=== PATIENT | male | born 1945 | race Caucasian/White ===

== ENCOUNTER 2021-04-29 00:58 | Inpatient (IN) ==
[2021-04-29] MEDS ORDERED: OCTREOTIDE 100 MCG/ML SYRINGE IV STA (01:13)
[2021-04-29] MEDS ORDERED: PANTOPRAZOLE 40 MG VIAL IV STA (01:13)
[2021-04-29] MEDS ORDERED: cefTRIAXone 2,000 MG in SODIUM CHLORIDE 0.9% 100 ML IV STA (01:15)
[2021-04-29] MEDS ORDERED: LACTATED RINGERS 1,000 ML IV ONE (01:17)
[2021-04-29] MEDS ORDERED: ONDANSETRON 4 MG/2 ML VIAL IV ONE (01:17)
[2021-04-29] MEDS ORDERED: SODIUM CHLORIDE 0.9% 1,000 ML IV PRN (01:21)
[2021-04-29] MEDS ORDERED: PROTHROMBIN COMPLEX IV ONE ×2 (01:21→02:30)
[2021-04-29 01:31] LABS: Basophils % 0.3 % (0.0-0.8); Eosinophils # 0.1 10*3/uL (0.0-0.87); Eosinophils % 0.5 % (0.00-10.9); Hematocrit 19.2 VOL% (42.0-52.0); Immature Granulocytes % 0.5 %; Immature Granulocytes Absolute 0.05 #; Lymphocytes # 1.3 10*3/uL (1.4-4.0); Lymphocytes % 13.6 % (21.2-54.2); Mean Corpuscular HGB Conc 30.2 GM/DL (32-36); Mean Corpuscular Volume 107.9 FL (87-102); Mean Platelet Volume 10.5 FL (9.6-12.0); Neutrophils % 78.1 % (38.7-73.9); Platelet Count 209 T/CUMM (130-400); White Blood Count 9.3 T/CUMM (4-12)
[2021-04-29 01:33] LABS: Red Blood Count 1.78 MC/CUMM (3.8-5.5)
[2021-04-29 01:34] LABS: Hemoglobin 5.8 GM/DL (14.0-18.0)
[2021-04-29 01:41] LABS: INR 4.6; Partial Thromboplastin Time 39.9 SECS (23.8-32.1)
[2021-04-29 01:47] LABS: PT Patient Result 46.1 SECS (10.5-12.0)
[2021-04-29 01:52] LABS: Alanine Aminotransferase 17 U/L (16-61); Albumin 1.8 G/DL (3.4-5.0); Alkaline Phosphatase 48 U/L (45-117); Aspartate Amino Transferase 11 U/L (0-37); Bilirubin,Total < 0.39 MG/DL (0.20-1.00); Blood Urea Nitrogen 94 MG/DL (7-18); Calcium 7.7 MG/DL (8.5-10.1); Carbon Dioxide 14 MMOL/L (21-32); Estimated Glom Filtration Rate 13 ML/MIN; Glucose 282 MG/DL (74-106); Osmolality,Calculated 319.3 MOS/KG (273-304); Potassium 4.6 MMOL/L (3.5-5.1); Sodium 141 MMOL/L (136-145); Total Protein 4.8 G/DL (6.4-8.2)
[2021-04-29] MEDS ORDERED: ALBUTEROL 2.5 MG/3 ML NEB RESP TX PRN (02:34)
[2021-04-29] MEDS ORDERED: ONDANSETRON 4 MG/2 ML VIAL IV PRN (02:35)
[2021-04-29] MEDS ORDERED: OCTREOTIDE 500 MCG in SODIUM CHLORIDE 0.9% 100 ML IV SCH (03:00)
[2021-04-29 05:06] LABS: Basophils % 0.3 % (0.0-0.8); Eosinophils % 0.1 % (0.00-10.9); Hematocrit 26.7 VOL% (42.0-52.0); Immature Granulocytes % 0.7 %; Immature Granulocytes Absolute 0.07 #; Lymphocytes # 0.5 10*3/uL (1.4-4.0); Mean Corpuscular HGB Conc 31.1 GM/DL (32-36); Mean Corpuscular Volume 100.8 FL (87-102); Mean Platelet Volume 10.8 FL (9.6-12.0); Monocytes % 8.2 % (1.7-12.7); Neutrophils % 85.7 % (38.7-73.9); Platelet Count 178 T/CUMM (130-400); Red Cell Distribution Width 17.9 % (9.3-17.3); White Blood Count 10.1 T/CUMM (4-12)
[2021-04-29 05:08] LABS: Hemoglobin 8.3 GM/DL (14.0-18.0); Red Blood Count 2.65 MC/CUMM (3.8-5.5)
[2021-04-29 05:27] LABS: Albumin 1.9 G/DL (3.4-5.0); Bilirubin,Total 0.5 MG/DL (0.20-1.00); Calcium 7.2 MG/DL (8.5-10.1); Osmolality,Calculated 317.4 MOS/KG (273-304); Potassium 5.3 MMOL/L (3.5-5.1); Total Protein 5.4 G/DL (6.4-8.2)
[2021-04-29] MEDS ORDERED: SODIUM POLYSTYRENE SULFATE 15 GM/60 ML BOTTLE PO ONE (07:50)
[2021-04-29] MEDS: OCTREOTIDE 500 MCG in SODIUM CHLORIDE 0.9% 100 ML IV SCH ×3 (07:50→17:30)
[2021-04-29 08:38] LABS: Bacteria,Urine Occasional /HPF (Few); Bilirubin,Urine Negative (Negative); Blood, Urine Negative (Negative); Glucose,Urine (UA) 50 mg/dL (Negative); Ketones,Urine 5 mg/dL (Negative); Mucus,Urine Occasional /LPF (Occasional); Nitrite,Urine Negative (Negative); Protein,Urine 100 MG/DL; RBC,Urine 1 /HPF (0-4); Urine Appearance CLEAR (Clear); Urine Color Yellow (Yellow); Urine Specific Gravity 1.016 (1.001-1.035); Urine Urobilinogen < 2.0 EU/DL (<2.0)
[2021-04-29] MEDS ORDERED: CALCIUM CHLORIDE 2,000 MG in SODIUM CHLORIDE 0.9% 100 ML IV ONE (09:14)
[2021-04-29 11:19] LABS: INR 1.9; PT Patient Result 20.9 SECS (10.5-12.0)
[2021-04-29] MEDS ORDERED: tiZANidine 4 MG TABLET PO PRN (11:37)
[2021-04-29] MEDS ORDERED: LIDOCAINE 2% 5 ML VIAL ONE (12:53)
[2021-04-29] MEDS ORDERED: propofoL 200 MG/20 ML VIAL IV ONE (12:53)
[2021-04-29] MEDS ORDERED: ETOMIDATE 20 MG/10 ML VIAL IV ONE (12:53)
[2021-04-29] MEDS: SODIUM CHLORIDE 0.9% 1,000 ML IV SCH (14:00)
[2021-04-29] MEDS: CALCIUM GLUCONATE 2,000 MG in SODIUM CHLORIDE 0.9% 100 ML IV ONE ×2 (14:08→15:10)
[2021-04-29] MEDS: PANTOPRAZOLE 40 MG VIAL IV SCH (15:57)
[2021-04-29 17:33] LABS: Hematocrit 26.8 VOL% (42.0-52.0); Hemoglobin 8.6 GM/DL (14.0-18.0)
[2021-04-29] MEDS: TAMSULOSIN 0.4 MG CAPSULE PO SCH (21:40)
[2021-04-29] MEDS: SIMVASTATIN 10 MG TABLET PO SCH (21:40)
[2021-04-29 22:10] LABS: Hematocrit 26.2 VOL% (42.0-52.0); Hemoglobin 8.4 GM/DL (14.0-18.0)
[2021-04-30] MEDS: PANTOPRAZOLE 40 MG VIAL IV SCH ×2 (03:29→15:50)
[2021-04-30] MEDS: OCTREOTIDE 500 MCG in SODIUM CHLORIDE 0.9% 100 ML IV SCH ×3 (03:29→23:23)
[2021-04-30 05:07] LABS: Hematocrit 24.1 VOL% (42.0-52.0); Hemoglobin 7.6 GM/DL (14.0-18.0)
[2021-04-30 10:03] LABS: Hematocrit 23.3 VOL% (42.0-52.0); Hemoglobin 7.5 GM/DL (14.0-18.0)
[2021-04-30 10:06] LABS: Basophils % 0.2 % (0.0-0.8); Eosinophils # 0.4 10*3/uL (0.0-0.87); Eosinophils % 4.1 % (0.00-10.9); Hematocrit 23.5 VOL% (42.0-52.0); Hemoglobin 7.5 GM/DL (14.0-18.0); Immature Granulocytes % 0.6 %; Immature Granulocytes Absolute 0.05 #; Lymphocytes # 0.9 10*3/uL (1.4-4.0); Lymphocytes % 9.9 % (21.2-54.2); Mean Corpuscular HGB Conc 31.9 GM/DL (32-36); Mean Corpuscular Volume 96.7 FL (87-102); Mean Platelet Volume 10.9 FL (9.6-12.0); Monocytes % 8.2 % (1.7-12.7); Platelet Count 126 T/CUMM (130-400); Red Blood Count 2.43 MC/CUMM (3.8-5.5); Red Cell Distribution Width 18.3 % (9.3-17.3); White Blood Count 8.7 T/CUMM (4-12)
[2021-04-30] MEDS: DOCUSATE SODIUM 100 MG CAPSULE PO SCH (10:14)
[2021-04-30] MEDS: CYANOCOBALAMIN 500 MCG TABLET PO SCH (10:14)
[2021-04-30 10:19] LABS: Calcium 7.3 MG/DL (8.5-10.1); Osmolality,Calculated 322.4 MOS/KG (273-304); Potassium 4.5 MMOL/L (3.5-5.1)
[2021-04-30 13:02] LABS: INR 1.9; PT Patient Result 20.2 SECS (10.5-12.0)
[2021-04-30] MEDS ORDERED: fentaNYL 25 MCG/HR PATCH TRANSDERM SCH (13:28)
[2021-04-30 16:18] LABS: Hematocrit 21.5 VOL% (42.0-52.0); Hemoglobin 6.9 GM/DL (14.0-18.0)
[2021-04-30] MEDS: TAMSULOSIN 0.4 MG CAPSULE PO SCH (20:34)
[2021-04-30] MEDS: SIMVASTATIN 10 MG TABLET PO SCH (20:34)
[2021-04-30] MEDS: SODIUM CHLORIDE 0.9% 1,000 ML IV SCH (20:47)
[2021-05-01] MEDS: PANTOPRAZOLE 40 MG VIAL IV SCH ×2 (04:08→19:34)
[2021-05-01] MEDS: OCTREOTIDE 500 MCG in SODIUM CHLORIDE 0.9% 100 ML IV SCH ×2 (05:15→19:34)
[2021-05-01 05:29] LABS: INR 1.9; PT Patient Result 20.9 SECS (10.5-12.0)
[2021-05-01 05:33] LABS: Calcium 7.5 MG/DL (8.5-10.1); Osmolality,Calculated 316.7 MOS/KG (273-304); Potassium 4.4 MMOL/L (3.5-5.1)
[2021-05-01] MEDS: DOCUSATE SODIUM 100 MG CAPSULE PO SCH (08:42)
[2021-05-01] MEDS: CYANOCOBALAMIN 500 MCG TABLET PO SCH (08:43)
[2021-05-01] MEDS ORDERED: SODIUM CHLORIDE 0.9% 1,000 ML IV PRN (09:39)
[2021-05-01 09:45] LABS: Basophils % 0.3 % (0.0-0.8); Eosinophils # 0.3 10*3/uL (0.0-0.87); Eosinophils % 4.9 % (0.00-10.9); Immature Granulocytes % 0.8 %; Immature Granulocytes Absolute 0.05 #; Lymphocytes # 0.7 10*3/uL (1.4-4.0); Lymphocytes % 11.5 % (21.2-54.2); Mean Corpuscular HGB Conc 30.9 GM/DL (32-36); Mean Corpuscular Volume 99.3 FL (87-102); Mean Platelet Volume 10.7 FL (9.6-12.0); Monocytes % 9.3 % (1.7-12.7); Neutrophils % 73.2 % (38.7-73.9); Platelet Count 104 T/CUMM (130-400); Red Blood Count 1.53 MC/CUMM (3.8-5.5); Red Cell Distribution Width 17.6 % (9.3-17.3); White Blood Count 5.9 T/CUMM (4-12)
[2021-05-01 10:01] LABS: Hematocrit 15.2 VOL% (42.0-52.0); Hemoglobin 4.7 GM/DL (14.0-18.0)
[2021-05-01] MEDS: fentaNYL 50 MCG/HR PATCH TRANSDERM SCH (10:25)
[2021-05-01] MEDS: TAMSULOSIN 0.4 MG CAPSULE PO SCH (20:39)
[2021-05-01] MEDS: SIMVASTATIN 10 MG TABLET PO SCH (20:39)
[2021-05-02] MEDS: PANTOPRAZOLE 40 MG VIAL IV SCH ×2 (04:36→17:12)
[2021-05-02] MEDS: OCTREOTIDE 500 MCG in SODIUM CHLORIDE 0.9% 100 ML IV SCH ×2 (04:42→17:14)
[2021-05-02 07:57] LABS: Basophils % 0.4 % (0.0-0.8); Eosinophils # 0.3 10*3/uL (0.0-0.87); Eosinophils % 3.5 % (0.00-10.9); Hematocrit 20.8 VOL% (42.0-52.0); Hemoglobin 6.6 GM/DL (14.0-18.0); Immature Granulocytes Absolute 0.07 #; Lymphocytes # 0.9 10*3/uL (1.4-4.0); Lymphocytes % 12.1 % (21.2-54.2); Mean Corpuscular HGB Conc 31.7 GM/DL (32-36); Mean Corpuscular Volume 94.5 FL (87-102); Mean Platelet Volume 10.7 FL (9.6-12.0); Monocytes % 9.6 % (1.7-12.7); NRBC # 0.02 10*3/uL; Neutrophils % 73.4 % (38.7-73.9); Platelet Count 103 T/CUMM (130-400); Red Cell Distribution Width 15.6 % (9.3-17.3); White Blood Count 7.1 T/CUMM (4-12)
[2021-05-02 08:05] LABS: Calcium 7.1 MG/DL (8.5-10.1); Osmolality,Calculated 317.7 MOS/KG (273-304); Potassium 5.3 MMOL/L (3.5-5.1)
[2021-05-02] MEDS ORDERED: SODIUM POLYSTYRENE SULFATE 15 GM/60 ML BOTTLE PO STA (08:31)
[2021-05-02] MEDS: DOCUSATE SODIUM 100 MG CAPSULE PO SCH (08:53)
[2021-05-02] MEDS ORDERED: SODIUM CHLORIDE 0.9% 1,000 ML IV PRN (08:54)
[2021-05-02] MEDS: CYANOCOBALAMIN 500 MCG TABLET PO SCH (08:54)
[2021-05-02] MEDS: SODIUM CHLORIDE 0.9% 1,000 ML IV SCH (10:39)
[2021-05-02] MEDS ORDERED: PHYTONADIONE 10 MG/1 ML AMP SUBCUT ONE (15:54)
[2021-05-02 18:43] LABS: Hematocrit 21.6 VOL% (42.0-52.0)
[2021-05-02 19:17] LABS: Calcium 7.2 MG/DL (8.5-10.1); Osmolality,Calculated 311.2 MOS/KG (273-304); Potassium 5.1 MMOL/L (3.5-5.1)
[2021-05-02] MEDS: TAMSULOSIN 0.4 MG CAPSULE PO SCH (21:12)
[2021-05-02] MEDS: SIMVASTATIN 10 MG TABLET PO SCH (21:13)
[2021-05-02 23:10] LABS: Hematocrit 20.7 VOL% (42.0-52.0); Hemoglobin 6.7 GM/DL (14.0-18.0)
[2021-05-03] MEDS: PANTOPRAZOLE 40 MG VIAL IV SCH ×2 (03:29→14:11)
[2021-05-03] MEDS: OCTREOTIDE 500 MCG in SODIUM CHLORIDE 0.9% 100 ML IV SCH ×2 (03:34→14:11)
[2021-05-03 05:23] LABS: Basophils % 0.3 % (0.0-0.8); Eosinophils # 0.5 10*3/uL (0.0-0.87); Eosinophils % 7.7 % (0.00-10.9); Hematocrit 20.2 VOL% (42.0-52.0); Hemoglobin 6.5 GM/DL (14.0-18.0); Immature Granulocytes % 1.2 %; Immature Granulocytes Absolute 0.08 #; Lymphocytes # 0.8 10*3/uL (1.4-4.0); Lymphocytes % 12.1 % (21.2-54.2); Mean Corpuscular HGB Conc 32.2 GM/DL (32-36); Mean Corpuscular Volume 94.4 FL (87-102); Mean Platelet Volume 10.9 FL (9.6-12.0); Monocytes % 9.8 % (1.7-12.7); Neutrophils % 68.9 % (38.7-73.9); Platelet Count 107 T/CUMM (130-400); Red Blood Count 2.14 MC/CUMM (3.8-5.5); Red Cell Distribution Width 15.6 % (9.3-17.3); White Blood Count 6.7 T/CUMM (4-12)
[2021-05-03 05:24] LABS: Hematocrit 20.6 VOL% (42.0-52.0); Hemoglobin 6.7 GM/DL (14.0-18.0)
[2021-05-03 05:33] LABS: INR 1.3; PT Patient Result 14.5 SECS (10.5-12.0)
[2021-05-03 05:46] LABS: Calcium 7.2 MG/DL (8.5-10.1); Osmolality,Calculated 313.8 MOS/KG (273-304); Potassium 4.6 MMOL/L (3.5-5.1)
[2021-05-03] MEDS ORDERED: SODIUM CHLORIDE 0.9% 1,000 ML IV PRN (07:54)
[2021-05-03] MEDS ORDERED: fentaNYL 25 MCG/HR PATCH TRANSDERM SCH (09:00)
[2021-05-03] MEDS ORDERED: ETOMIDATE 20 MG/10 ML VIAL IV ONE (11:21)
[2021-05-03] MEDS ORDERED: propofoL 200 MG/20 ML VIAL IV ONE (11:21)
[2021-05-03] MEDS ORDERED: LIDOCAINE 2% 5 ML VIAL ONE (11:23)
[2021-05-03] MEDS: CYANOCOBALAMIN 500 MCG TABLET PO SCH (12:44)
[2021-05-03] MEDS: DOCUSATE SODIUM 100 MG CAPSULE PO SCH (12:44)
[2021-05-03] MEDS: TAMSULOSIN 0.4 MG CAPSULE PO SCH (21:45)
[2021-05-03] MEDS: SIMVASTATIN 10 MG TABLET PO SCH (21:45)
[2021-05-04] MEDS: OCTREOTIDE 500 MCG in SODIUM CHLORIDE 0.9% 100 ML IV SCH ×3 (00:26→20:23)
[2021-05-04] MEDS: PANTOPRAZOLE 40 MG VIAL IV SCH ×2 (02:12→14:32)
[2021-05-04 06:21] LABS: Basophils % 0.5 % (0.0-0.8); Eosinophils # 0.7 10*3/uL (0.0-0.87); Eosinophils % 10.8 % (0.00-10.9); Hematocrit 21.8 VOL% (42.0-52.0); Hemoglobin 6.9 GM/DL (14.0-18.0); Immature Granulocytes % 1.1 %; Immature Granulocytes Absolute 0.07 #; Lymphocytes # 0.9 10*3/uL (1.4-4.0); Lymphocytes % 14.1 % (21.2-54.2); Mean Corpuscular HGB Conc 31.7 GM/DL (32-36); Mean Corpuscular Volume 94.8 FL (87-102); Mean Platelet Volume 10.9 FL (9.6-12.0); Monocytes % 12.2 % (1.7-12.7); Neutrophils % 61.3 % (38.7-73.9); Platelet Count 106 T/CUMM (130-400); Red Cell Distribution Width 14.7 % (9.3-17.3); White Blood Count 6.3 T/CUMM (4-12)
[2021-05-04 06:41] LABS: Osmolality,Calculated 305.8 MOS/KG (273-304); Potassium 4.3 MMOL/L (3.5-5.1)
[2021-05-04 07:25] LABS: Eosinophils 8 % (0-10); Hypochromia Slight; Lymphocytes 12 % (20-55); Microcytosis 1+; Segmented Neutrophils 70 % (50-85); Total Cells Counted 100
[2021-05-04 07:26] LABS: Anisocytosis 1+; Ovalocytes Slight; Platelet Estimate Decreased
[2021-05-04] MEDS: DOCUSATE SODIUM 100 MG CAPSULE PO SCH (09:06)
[2021-05-04] MEDS: CYANOCOBALAMIN 500 MCG TABLET PO SCH (09:06)
[2021-05-04] MEDS: fentaNYL 50 MCG/HR PATCH TRANSDERM SCH (09:07)
[2021-05-04] MEDS ORDERED: BISACODYL 5 MG TABLET PO ONE (12:00)
[2021-05-04 13:15] LABS: Hematocrit 23.8 VOL% (42.0-52.0); Hemoglobin 7.5 GM/DL (14.0-18.0)
[2021-05-04] MEDS ORDERED: POLYETHYLENE GLYCOL POWDER 255 GM BOTTLE PO ONE (18:00)
[2021-05-04] MEDS: TAMSULOSIN 0.4 MG CAPSULE PO SCH (20:23)
[2021-05-04] MEDS: SIMVASTATIN 10 MG TABLET PO SCH (20:23)
[2021-05-04 20:38] LABS: Hematocrit 23.5 VOL% (42.0-52.0); Hemoglobin 7.6 GM/DL (14.0-18.0)
[2021-05-04] MEDS ORDERED: MAGNESIUM CITRATE 300 ML BOTTLE PO ONE (21:00)
[2021-05-05] MEDS: PANTOPRAZOLE 40 MG VIAL IV SCH ×2 (03:54→14:37)
[2021-05-05 05:35] LABS: Basophils % 0.3 % (0.0-0.8); Eosinophils # 0.6 10*3/uL (0.0-0.87); Eosinophils % 8.6 % (0.00-10.9); Hematocrit 20.6 VOL% (42.0-52.0); Hemoglobin 6.6 GM/DL (14.0-18.0); Immature Granulocytes % 0.9 %; Immature Granulocytes Absolute 0.06 #; Lymphocytes # 0.8 10*3/uL (1.4-4.0); Lymphocytes % 11.4 % (21.2-54.2); Mean Corpuscular Volume 94.9 FL (87-102); Mean Platelet Volume 10.5 FL (9.6-12.0); Monocytes % 11.1 % (1.7-12.7); Neutrophils % 67.7 % (38.7-73.9); Platelet Count 122 T/CUMM (130-400); Red Blood Count 2.17 MC/CUMM (3.8-5.5); Red Cell Distribution Width 15.6 % (9.3-17.3); White Blood Count 6.6 T/CUMM (4-12)
[2021-05-05 05:59] LABS: Calcium 7.3 MG/DL (8.5-10.1); Osmolality,Calculated 308.7 MOS/KG (273-304); Potassium 4.8 MMOL/L (3.5-5.1)
[2021-05-05] MEDS ORDERED: SODIUM CHLORIDE 0.9% 1,000 ML IV PRN (07:48)
[2021-05-05] MEDS: DOCUSATE SODIUM 100 MG CAPSULE PO SCH (10:51)
[2021-05-05] MEDS: CYANOCOBALAMIN 500 MCG TABLET PO SCH (10:51)
[2021-05-05] MEDS: OCTREOTIDE 500 MCG in SODIUM CHLORIDE 0.9% 100 ML IV SCH ×2 (10:51→17:33)
[2021-05-05] MEDS ORDERED: ETOMIDATE 20 MG/10 ML VIAL IV ONE (12:18)
[2021-05-05] MEDS ORDERED: propofoL 200 MG/20 ML VIAL IV ONE (12:18)
[2021-05-05] MEDS ORDERED: LIDOCAINE 2% 5 ML VIAL ONE (12:18)
[2021-05-05] MEDS: LACTATED RINGERS 1,000 ML IV SCH (12:55)
[2021-05-05] MEDS: TAMSULOSIN 0.4 MG CAPSULE PO SCH (20:46)
[2021-05-05] MEDS: SIMVASTATIN 10 MG TABLET PO SCH (20:46)
[2021-05-06] MEDS: OCTREOTIDE 500 MCG in SODIUM CHLORIDE 0.9% 100 ML IV SCH ×3 (01:55→14:14)
[2021-05-06] MEDS: PANTOPRAZOLE 40 MG VIAL IV SCH ×2 (04:15→14:15)
[2021-05-06 04:37] LABS: Basophils # 0.1 10*3/uL (0.0-0.2); Basophils % 0.8 % (0.0-0.8); Eosinophils # 0.5 10*3/uL (0.0-0.87); Eosinophils % 8.4 % (0.00-10.9); Hematocrit 21.6 VOL% (42.0-52.0); Hemoglobin 6.8 GM/DL (14.0-18.0); Immature Granulocytes % 1.1 %; Immature Granulocytes Absolute 0.07 #; Lymphocytes # 0.7 10*3/uL (1.4-4.0); Lymphocytes % 11.8 % (21.2-54.2); Mean Corpuscular HGB Conc 31.5 GM/DL (32-36); Mean Corpuscular Volume 96.4 FL (87-102); Mean Platelet Volume 10.8 FL (9.6-12.0); Monocytes % 10.5 % (1.7-12.7); Neutrophils % 67.4 % (38.7-73.9); Platelet Count 125 T/CUMM (130-400); Red Blood Count 2.24 MC/CUMM (3.8-5.5); White Blood Count 6.3 T/CUMM (4-12)
[2021-05-06] MEDS ORDERED: SODIUM CHLORIDE 0.9% 1,000 ML IV PRN (04:50)
[2021-05-06 05:01] LABS: Calcium 7.1 MG/DL (8.5-10.1); Osmolality,Calculated 303.5 MOS/KG (273-304)
[2021-05-06] MEDS: CYANOCOBALAMIN 500 MCG TABLET PO SCH (08:42)
[2021-05-06] MEDS: LACTATED RINGERS 1,000 ML IV SCH (08:42)
[2021-05-06] MEDS: DOCUSATE SODIUM 100 MG CAPSULE PO SCH (08:42)
[2021-05-06] MEDS ORDERED: LIDOCAINE 2% 5 ML VIAL ONE (11:56)
[2021-05-06] MEDS ORDERED: ETOMIDATE 20 MG/10 ML VIAL IV ONE (11:56)
[2021-05-06] MEDS ORDERED: propofoL 200 MG/20 ML VIAL IV ONE (11:56)
[2021-05-06] MEDS ORDERED: fentaNYL 75 MCG/HR PATCH TRANSDERM SCH (14:37)
[2021-05-06] MEDS: TAMSULOSIN 0.4 MG CAPSULE PO SCH (20:35)
[2021-05-07] MEDS: OCTREOTIDE 500 MCG in SODIUM CHLORIDE 0.9% 100 ML IV SCH ×3 (00:18→19:13)
[2021-05-07] MEDS: PANTOPRAZOLE 40 MG VIAL IV SCH ×2 (02:26→15:40)
[2021-05-07 05:05] LABS: Hematocrit 26.2 VOL% (42.0-52.0)
[2021-05-07 05:10] LABS: Hemoglobin 8.1 GM/DL (14.0-18.0)
[2021-05-07] MEDS: DOCUSATE SODIUM 100 MG CAPSULE PO SCH (09:44)
[2021-05-07] MEDS: LACTATED RINGERS 1,000 ML IV SCH (09:51)
[2021-05-07] MEDS: TAMSULOSIN 0.4 MG CAPSULE PO SCH (20:42)
[2021-05-08] MEDS: PANTOPRAZOLE 40 MG VIAL IV SCH (04:03)
[2021-05-08] MEDS: OCTREOTIDE 500 MCG in SODIUM CHLORIDE 0.9% 100 ML IV SCH ×2 (07:52→08:49)
[2021-05-08 07:57] VITALS: BP 128/77
[2021-05-08] MEDS: DOCUSATE SODIUM 100 MG CAPSULE PO SCH (08:49)
[2021-05-08] MEDS: LACTATED RINGERS 1,000 ML IV SCH (09:08)
== END 2021-05-08 11:43 | disposition hospice, home (50) | DRG 374 ==
LOC: EDBD → EDUNIT# → N.ED 00:58 → SUATTDRO 02:34 → N.EDINP 02:34 → N.TELEN 17:06
PROVIDERS: ADMIT Internal Medicine; ATTEND Internal Medicine